=== PATIENT | male | born 1960 | race Caucasian/White ===

== ENCOUNTER 2016-12-24 07:35 | Emergency (ER) | payer MEDICAID ==
[2016-12-24] MEDS ORDERED: Aspirin 81 MG Tab.Chew PO ONE (07:48)
[2016-12-24] MEDS: Nitroglycerin 0.4 MG Tab.SL SL ONE ×2 (07:54→09:30)
--- NOTE | 2016-12-24 07:57 | EDM.PDOC ---
ED HPI GENERAL MEDICAL PROBLEM - General Chief Complaint: Chest Pain Stated Complaint: CHEST PAIN Time Seen by Provider: 12/24/16 07:46 Source of Information: Reports: Patient History Limitations: Reports: No Limitations - History of Present Illness INITIAL COMMENTS - FREE TEXT/NARRATIVE: This patient is a 56 year old male smoker that presents to the ER. Patient is anxious. Patient reports that for the last 2 weeks he has had this pain in the left central upper part of his back. He reports the pain is also located in the axilla of the LUE and into the left chest. The patient describes the pain as a burning sensation. The patient does report that moving the LUE does make the burning sensation worse. The patient reports also for the past couple of weeks he has been having some mild shortness of breath and mild nausea. The patient also reports he has had some mild constipation for several weeks. The patient reports that he went to [facility] 1 week ago for the same complaint, had a workup and was told it was a pinched nerve. The patient states "this is not a pinched nerve." Patient reports he would like to know what is causing this. This is the reason for his presentation to the ER today. The patient is fully alert and oriented. The pain in the patients locations is manipulated either by palpation or ROM of the left shoulder/arm region. 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 I do not see any unilateral weaknesses on neuro exam. Stroke score 0, GCS is 15. Onset Date: 12/10/16 Duration: Week(s): (2), Getting Worse Location: Reports: Chest, Back, Upper Extremity, Left Front/Back Body Image: 1 - pain. mild tenderness. 2 - pain. Quality: Reports: Burning Severity: Moderate Improves with: Reports: Immobilization Worsens with: Reports: Movement Associated Symptoms: Reports: Chest Pain, Nausea/Vomiting, Shortness of Breath. Denies: Confusion, Cough, cough w sputum, Diaphoresis, Fever/Chills, Headaches , Loss of Appetite, Malaise, Rash, Seizure, Syncope, Weakness Treatments MEDICAL EDUCATION COORDINATOR: Reports: Aspirin (81mg) Left Chest Pain Score (Numeric/FACES): 9 - Related Data Allergies Allergy/AdvReac Type Severity Reaction Status Date / Time No Known Allergies Allergy Verified 12/24/16 07:45 Home Meds: Home Meds cloNIDine [Catapres] 0.1 mg PO DAILY 12/24/16 [History] Social & Family History - Tobacco Use Smoking Status *Q: Former Smoker Years of Tobacco use: 20 - Alcohol Use Days Per Week of Alcohol Use: 0 ED ROS GENERAL - Review of Systems Review Of Systems: See Below Constitutional: Reports: No Symptoms HEENT: Reports: No Symptoms Respiratory: Reports: Shortness of Breath Cardiovascular: Reports: Chest Pain Endocrine: Reports: No Symptoms GI/Abdominal: Reports: Constipation, Nausea. Denies: Abdominal Pain, Vomiting : Reports: No Symptoms Musculoskeletal: Reports: Back Pain (left upper central back pain. pain is made worse in this region with moveemnt and palpation. ), Other ( left axilla pain.) Skin: Reports: No Symptoms Neurological: Reports: No Symptoms ED EXAM, GENERAL - Physical Exam Exam: See Below Exam Limited By: No Limitations General Appearance: Alert, WD/WN, No Apparent Distress, Anxious Eye Exam: Bilateral Eye: Normal Inspection, PERRL Ears: Normal External Exam, Normal Canal, Hearing Grossly Normal, Normal TMs Ear Exam: Bilateral Ear: Auricle Normal, Canal Normal, TM normal Nose: Normal Inspection, Normal Mucosa, No Blood Throat/Mouth: Normal Inspection, Normal Lips, Normal Teeth, Normal Gums, Normal Oropharynx, Normal Voice, No Airway Compromise Head: Atraumatic, Normocephalic Neck: Normal Inspection, Supple, Non-Tender, Full Range of Motion Respiratory/Chest: No Respiratory Distress, Lungs Clear, Normal Breath Sounds, No Accessory Muscle Use, Chest Non-Tender Cardiovascular: Normal Peripheral Pulses, Regular Rate, Rhythm, No Edema, No Gallop, No JVD, No Murmur, No Rub Peripheral Pulses: 2+: Brachial (L), Brachial (R), Radial (L), Radial (R), Posterior Tibial (L), Posterior Tibial (R), Dorsalis Pedis (L), Dorsalis Pedis ( R) GI/Abdominal: Normal Bowel Sounds, Soft, Non-Tender, No Organomegaly, No Distention, No Abnormal Bruit, No Mass, Pelvis Stable Back Exam: Normal Inspection, Full Range of Motion, Paraspinal Tenderness (Left upper mid back mild. Made worse with ROM of the back and left upper arm. ). No : CVA Tenderness (L), CVA Tenderness (R), Decreased Range of Motion, Muscle Spasm, Vertebral Tenderness Extremities: Normal Inspection, Normal Range of Motion, Non-Tender, No Pedal Edema, Normal Capillary Refill, Other (When I do perform ROM of the left shoulder, the patent does report an increase in pain to the left chest, left upper back, to the left axilla location.) Neurological: Alert, Oriented, CN II-XII Intact, Normal Cognition, Normal Gait, No Motor/Sensory Deficits Psychiatric: Anxious Skin Exam: Warm, Dry, Intact, Normal Color, No Rash Lymphatic: No Adenopathy EKG INTERPRETATION EKG Date: 12/24/16 Time: 07:48 Rate (Beats/Min): 81 ST-T: Other (T wave abnormality.) Comparison: No Change (Sent from [facility]. T wave abnormalities. No changes. ) Course - Vital Signs Last Recorded V/S: Last Vital Signs Temp 98.5 F 12/24/16 07:37 Pulse 52 L 12/24/16 11:08 Resp 16 12/24/16 11:08 BP 153/72 H 12/24/16 09:30 Pulse Ox 95 12/24/16 11:08 - Orders/Labs/Meds Orders: Active Orders 24 hr Category Date Time Status CTA Chest W WO Contrast [Ang Chest] [CT] Stat Exams 12/24/16 08:50 Taken Chest 2V [CR] Stat Exams 12/24/16 07:47 Taken EKG 12 Lead [EK] Stat Ther 12/24/16 07:47 Ordered Labs: Laboratory Tests 12/24/16 12/24/16 12/24/16 Range/Units 08:00 08:00 08:00 WBC 6.0 (5.0-10.0) 10^3/uL RBC 5.21 (4.50-6.00) 10^6/uL Hgb 15.7 (14.0-18.0) g/dL Hct 45.8 (40.0-54.0) % MCV 87.9 (82.0-94.0) fL MCH 30.1 (27.0-32.0) pg MCHC 34.3 (33.0-38.0) g/dL RDW Coeff of Kassie 13.1 (11.0-15.0) % Plt Count 263 (150-400) 10^3/uL Neut % (Auto) 60.6 (35-85) % Lymph % (Auto) 24.4 (10-55) % [place] % (Auto) 9.1 (0-16) % Eos % (Auto) 5.1 H (0-5) % Baso % (Auto) 0.8 (0-3) % Neut # (Auto) 3.64 (1.80-7.00) 10^3/uL Lymph # (Auto) 1.47 (1.00-4.80) 10^3/uL [place] # (Auto) 0.55 (0.00-0.80) 10^3/uL Eos # (Auto) 0.31 (0.00-0.45) 10^3/uL Baso # (Auto) 0.05 10^3/uL D-Dimer, Quantitative 0.56 H (0.00-0.50) Sodium 139 (136-145) mEq/L Potassium 3.7 (3.5-5.0) mEq/L Chloride 103 (98-106) mEq/L Carbon Dioxide 28 (21-32) mmol/L BUN 19 H D (7-18) mg/dL Creatinine 1.0 (0.7-1.3) mg/dL Est Cr Clr Drug Dosing 95.90 mL/min Estimated GFR (MDRD) > 60 (>=60) mL/min Glucose 148 H D (75-99) mg/dL Calcium 8.7 (8.4-10.1) mg/dL Total Bilirubin 0.6 (0.0-1.0) mg/dL AST 22 (15-37) U/L ALT 42 (12-78) U/L Alkaline Phosphatase 127 H (46-116) U/L Creatine Kinase 164 (35-232) U/L Troponin I < 0.017 (0.00-0.06) ng/mL Total Protein 6.9 (6.4-8.2) g/dL Albumin 3.9 (3.4-5.0) g/dL 12/24/16 Range/Units 11:20 WBC (5.0-10.0) 10^3/uL RBC (4.50-6.00) 10^6/uL Hgb (14.0-18.0) g/dL Hct (40.0-54.0) % MCV (82.0-94.0) fL MCH (27.0-32.0) pg MCHC (33.0-38.0) g/dL RDW Coeff of Kassie (11.0-15.0) % Plt Count (150-400) 10^3/uL Neut % (Auto) (35-85) % Lymph % (Auto) (10-55) % [place] % (Auto) (0-16) % Eos % (Auto) (0-5) % Baso % (Auto) (0-3) % Neut # (Auto) (1.80-7.00) 10^3/uL Lymph # (Auto) (1.00-4.80) 10^3/uL [place] # (Auto) (0.00-0.80) 10^3/uL Eos # (Auto) (0.00-0.45) 10^3/uL Baso # (Auto) 10^3/uL D-Dimer, Quantitative (0.00-0.50) Sodium (136-145) mEq/L Potassium (3.5-5.0) mEq/L Chloride (98-106) mEq/L Carbon Dioxide (21-32) mmol/L BUN (7-18) mg/dL Creatinine (0.7-1.3) mg/dL Est Cr Clr Drug Dosing mL/min Estimated GFR (MDRD) (>=60) mL/min Glucose (75-99) mg/dL Calcium (8.4-10.1) mg/dL Total Bilirubin (0.0-1.0) mg/dL AST (15-37) U/L ALT (12-78) U/L Alkaline Phosphatase (46-116) U/L Creatine Kinase (35-232) U/L Troponin I < 0.017 (0.00-0.06) ng/mL Total Protein (6.4-8.2) g/dL Albumin (3.4-5.0) g/dL Meds: Medications Discontinued Medications Generic Name Dose Route Start Last Admin Trade Name Freq PRN Reason Stop Dose Admin Aspirin 324 mg 12/24/16 07:48 12/24/16 07:40 Aspirin PO 12/24/16 07:49 324 mg ONETIME ONE Administration Nitroglycerin 0.4 mg 12/24/16 07:48 12/24/16 09:30 Nitrostat SL 12/24/16 07:49 0.4 mg ONETIME ONE Administration - Radiology Interpretation Free Text/Narrative:: CXR: No infiltrates, no cardiac enlargement. No COPD. CTA: Discussed with radiologist: No PE, no infiltrates, no fluid. CT Results Date: 12/24/16 CT Results Time: 10:12 - Re-Assessments/Exams Free Text/Narrative Re-Assessment/Exam: 12/24/16 09:08 Elevated d-dimer, will cta chest. 12/24/16 09:57 Patient reports had a cardiac cath in the late 80s and no intervention done. 12/24/16 10:24 Patient reports his pain was unchanged from nitro. Patient labs unremarkable. EGk unchanged, No PEs, CXR lungs clear. Pain is easily reproduced. This has been present for 2 weeks. At this time this is not emergent. Patient is educated to followup with his primary care provider and possible paste plant supervisor for evaluation. due to patient pain with ROM and possible radiculopathy symptoms , I will prescribe steroid. Patient is hemodynamically stable, does not indicate AAA. 12/24/16 11:08 I did call and talk to Dr. Coy paste plant supervisor at [facility] about this patient prior to discharge. I faxed both EKGs and discussed labs, CT, and CXR. She reports that she would repeat one more troponin now. She said if negative discharge the patient home and he should have an outpatient stress test and followup with cardiology or PCP. We will repeat this test and discharge if negative. Patient does also have history of COPD, CXR and CT does not show this at this time. 12/24/16 11:40 Both troponins are negative. Will discharge. Departure - Departure Time of Disposition: 10:41 Disposition: Home, Self-Care 01 Condition: Good Clinical Impression: Atypical chest pain, Cervical radiculopathy Referrals: PCP,None [Primary Care Provider] - Forms: ED Department Discharge Additional Instructions: Followup with your primary care provider Return to the ER for worsening of condition or any emergent concerns Prednisone 20mg 1 pill twice a day for 5 days #10 no refill Ibuprofen over the counter for pain - My Orders Last 24 Hours: My Active Orders 12/24/16 07:47 Chest 2V [CR] Stat EKG 12 Lead [EK] Stat 12/24/16 08:50 CTA Chest W WO Contrast [Ang Chest] [CT] Stat - Assessment/Plan Last 24 Hours: My Active Orders 12/24/16 07:47 Chest 2V [CR] Stat EKG 12 Lead [EK] Stat 12/24/16 08:50 CTA Chest W WO Contrast [Ang Chest] [CT] Stat
[2016-12-24 08:22] LABS: CHLORIDE,CL 103 mEq/L (98-106); SODIUM,NA 139 mEq/L (136-145)
[2016-12-24 09:30] VITALS: BP 153/72
== END 2016-12-24 11:45 | disposition home or self-care (01) ==
LOC: CC.ED 07:35
DX: R07.89 Other chest pain (principal); M54.12 Radiculopathy, cervical region; Z79.899 Other long term (current) drug therapy; Z87.891 Personal history of nicotine dependence
CPT/HCPCS: 36415; 71020; 71275; 80053; 82550; 84484; 85025; 85379; 93005; 99285; A9270; Q9967

== ENCOUNTER 2017-08-28 21:15 | Emergency (ER) | payer MEDICAID ==
[2017-08-28] MEDS ORDERED: Sodium Chloride 0.9% 1,000 ML IV ONE (21:32)
[2017-08-28] MEDS ORDERED: Naloxone 2 MG/2 ML Syringe IVPUSH ONE (21:32)
[2017-08-28] MEDS: EPINEPHrine 1:10,000 1 MG/10 ML Syringe IVPUSH PRN ×3 (21:33→21:41)
--- NOTE | 2017-08-29 11:02 | EDM.PDOC ---
ED HPI GENERAL MEDICAL PROBLEM - General Chief Complaint: Cardiovascular Problem Stated Complaint: cardiac arrest Time Seen by Provider: 08/28/17 21:15 Source of Information: Reports: Other (limited information from friends as left immediately after patient was unloaded from car; information from friends at scene relate that he had been spitting up blood for 3 days but had refused medical care) History Limitations: Reports: Respiratory Distress - History of Present Illness INITIAL COMMENTS - FREE TEXT/NARRATIVE: Patient arrives to the ER garage in the front passenger seat of a car with 2 friends. Relate he "collapsed and is bleeding from his mouth and wasn't breathing". [place] couldn't call 911 as they didn't feel they had time. No other history known or provided. Patient slumped over in seat, blood noted from his mouth and nares and on his upper chest. No palpable pulse noted. One agonal breath noted prior to unloading patient on to [employer]. With assist of nurse, myself and police office, loaded on to gurney and taken in to the ER. CPR initiated. Onset: Sudden Duration: Minutes: - Related Data Allergies Allergy/AdvReac Type Severity Reaction Status Date / Time No Known Allergies Allergy Verified 08/29/17 05:25 Home Meds: Home Meds . [Unable to Verify Home Med List] 08/28/17 [History] Past Medical History Cardiovascular History: Reports: Hypertension, Other (See Below) Other Cardiovascular History: coarctation of aorta, delayed t-wave Respiratory History: Reports: COPD, Other (See Below) Other Respiratory History: emphysema Gastrointestinal History: Reports: None Musculoskeletal History: Reports: Fracture, Gout Hematologic History: Reports: Blood Transfusion(s) - Past Surgical History HEENT Surgical History: Reports: Oral Surgery Cardiovascular Surgical History: Reports: Other (See Below) Other Cardiovascular Surgeries/Procedures: graft in aorta Respiratory Surgical History: Reports: None GI Surgical History: Reports: Colonoscopy, Polypectomy, Other (See Below) Other GI Surgeries/Procedures: sigmoidoscopy Musculoskeletal Surgical History: Reports: None Social & Family History - Family History Family Medical History: Noncontributory - Caffeine Use Caffeine Use: Reports: Soda - Recreational Drug Use Recreational Drug Use Comment: 2 ziploc bags noted in patient's front pocket. One with large crystal rocks, one with white powder. Drugs given to [facility]. ED ROS GENERAL - Review of Systems Review Of Systems: Unable To Obtain ED EXAM, GENERAL - Physical Exam Exam: See Below Exam Limited By: Other (no palpable pulse) Nose: Other (significant blood noted out of bilateral nares) Throat/Mouth: Other (blood pooling in mouth) Head: Normocephalic Respiratory/Chest: Other (one agonal breath noted in car) Cardiovascular: Other (no carotid pulse noted) Course - Orders/Labs/Meds Orders: Active Orders 24 hr Category Date Time Status Oxygen Therapy, ED [RC] ASDIRECTED Care 08/28/17 21:15 Active Meds: Medications Discontinued Medications Generic Name Dose Route Start Last Admin Trade Name Freq PRN Reason Stop Dose Admin Epinephrine HCl 1 mg 08/29/17 07:21 08/28/17 21:41 Epinephrine 1:10,000 IVPUSH 1 mg ASDIRECTED PRN Administration Other Sodium Chloride 1,000 mls @ 999 mls/hr 08/28/17 21:32 08/28/17 21:35 Normal Saline IV 08/28/17 22:32 999 mls/hr .BOLUS ONE Administration Naloxone HCl 2 mg 08/28/17 21:32 08/28/17 21:32 Narcan IVPUSH 08/28/17 21:33 2 mg ONETIME ONE Administration - Re-Assessments/Exams Free Text/Narrative Re-Assessment/Exam: 08/28/2017 Patient presented to ER in private car, A, with large amount of blood from nares, mouth and on chest. Transferred to [facility] with assist of 3 and taken in to ER. No palpable pulse, one agonal breath noted in care. CPR was started. Júnior Machine applied for compressions. Suctioned large amount of blood from mouth and nare. Howard Tube inserted, bagged with 100% oxygen. Please see Shalonda's notes for IO, drugs administered, times of care. Did receive information from friends at scene that he had "outlived his life expectancy for 10 years due to having an arteriograph". Patient had been "spitting blood for 3 days but continued to refuse medical care". Exact event leading up to his arrival to our ER still unknown. Police officers report a trail of blood from his vehicle to the yard where there was a pool of blood. Unable to obtain any information from the friends who brought him here and left as unsure of there whereabouts. During code, 2 bags of substances found in left front pocket. One bag of large crystal and the other white powder. Departure - Departure Time of Disposition: 21:44 Disposition: 20 Clinical Impression: Cardiac arrest Referrals: Provider,Unknown [Primary Care Provider] - Forms: ED Department Discharge Additional Instructions: Cat Sitter Dr. Batista called. Yousuf Nunezduarte from [facility] noted of needed autopsy. Released to [facility] for transport. - My Orders Last 24 Hours: My Active Orders 08/28/17 21:15 Oxygen Therapy, ED [RC] ASDIRECTED - Assessment/Plan Last 24 Hours: My Active Orders 08/28/17 21:15 Oxygen Therapy, ED [RC] ASDIRECTED
== END 2017-08-28 21:44 | disposition expired ==
LOC: CC.ED 21:15
DX: I46.9 Cardiac arrest, cause unspecified (principal); I10 Essential (primary) hypertension
CPT/HCPCS: 92950; 96374; 96375; 99285; J0171; J2310; J7030